=== PATIENT | male | born 1975 | race Caucasian/White ===

== ENCOUNTER → 2022-07-13 14:04 | Outpatient (REF) | payer OTHER, SELFPAY | LOC: HO.SL 14:04 | PROVIDERS: PCP Internal Medicine; Visit Provider Nurse Practitioner Family | DX: G47.33 Obstructive sleep apnea (adult) (pediatric) (principal); G47.19 Other hypersomnia; R06.83 Snoring | CPT/HCPCS: 95806 ==

== ENCOUNTER → 2022-09-23 09:28 | Outpatient (BNVA) | payer OTHER, SELFPAY | PROVIDERS: PCP Internal Medicine; Visit Provider Nurse Practitioner Family | DX: G47.19 Other hypersomnia (principal) ==

== ENCOUNTER → 2022-12-21 09:17 | Outpatient (BNVA) | payer OTHER, SELFPAY | PROVIDERS: PCP Internal Medicine; Visit Provider Nurse Practitioner Family | DX: Z13.89 Encounter for screening for other disorder (principal) ==

== ENCOUNTER 2024-10-02 12:00 | Outpatient (REF) | payer OTHER, SELFPAY ==
--- NOTE | ~2024-10-02 | XR_ITS ---
EXAMINATION: XR FOOT 3 OR MORE VIEWS RIGHT HISTORY: pain in right foot COMPARISON: There are no prior studies available for comparison. FINDINGS: Three views of the right foot are submitted. Osseous mineralization is normal. There is severe degenerative change involving the intertarsal joints, particularly those between the navicular and the cuneiforms as well as the calcaneocuboid joint, with joint space narrowing and subchondral cyst formation. There may be fragmentation of the navicular bone multiple osseous densities seen on the lateral view. There is a plantar calcaneal spur. The soft tissues are unremarkable. 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 Possible fragmentation of the navicular bone. Findings could represent early Charcot joint. Clinical correlation is recommended. Electronically signed by: Joao Louise MD 10/04/2024 09:48 AM [facility] RP
--- OUTSIDE RECORDS SUMMARY | 2024-10-02 14:16 | XMS_ITS | Data Portability ---
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 MUST MEET 2 OUT OF 3 ELEMENTS: PROBLEMS, DATA OR RISK ELEMENT 1: PROBLEMS ADDRESSED 1 OR MORE CHRONIC ILLNESS WITH EXACERBATION OR 2 OR MORE STABLE CHRONIC ILLNESSES OR 1 UNDIAGNOSED NEW PROBLEM OR 1 ACUTE ILLNESS W/SYMPTOMS OR 1 ACUTE COMPLICATED INJURY ELEMENT 2: DATA MUST MEET 1 OF 3 CATEGORIES CATEGORY 1: REVIEW OF PRIOR EXTERNAL NOTES, REVIEW OF RESULTS, ORDERING OF EACH TEST, ASSESSMENT REQUIRING INDEPENDENT HISTORIAN OR CATEGORY 2: INDEPENDENT INTERPRETATION OF TESTS BY ANOTHER PHYSICIAN OR SPECIALIST OR CATEGORY 3: DISCUSSION OF MGT OR TEST INTERPRETATION W/EXTERNAL PHYSICIAN OR SPECIALIST ELEMENT 3: RISK RISK OF COMPLICATIONS AND/OR MORBIDITY OR MORTALITY OF PATIENT MANAGEMENT PROVIDER MUST THOROUGHLY DOCUMENT EACH ELEMENT THAT IS COVERED Not available 07/18/2021 09:38:49 02/06/2022 02/06/2022 [id number] [place] [id number] (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 MODERATE MUST MEET 2 OUT OF 3 ELEMENTS: PROBLEMS, DATA OR RISK ELEMENT 1: PROBLEMS ADDRESSED 1 OR MORE CHRONIC ILLNESS WITH EXACERBATION OR 2 OR MORE STABLE CHRONIC ILLNESSES OR 1 UNDIAGNOSED NEW PROBLEM OR 1 ACUTE ILLNESS W/SYMPTOMS OR 1 ACUTE COMPLICATED INJURY ELEMENT 2: DATA MUST MEET 1 OF 3 CATEGORIES CATEGORY 1: REVIEW OF PRIOR EXTERNAL NOTES, REVIEW OF RESULTS, ORDERING OF EACH TEST, ASSESSMENT REQUIRING INDEPENDENT HISTORIAN OR CATEGORY 2: INDEPENDENT INTERPRETATION OF TESTS BY ANOTHER PHYSICIAN OR SPECIALIST OR CATEGORY 3: DISCUSSION OF MGT OR TEST INTERPRETATION W/EXTERNAL PHYSICIAN OR SPECIALIST ELEMENT 3: RISK RISK OF COMPLICATIONS AND/OR MORBIDITY OR MORTALITY OF PATIENT MANAGEMENT PROVIDER MUST THOROUGHLY DOCUMENT EACH ELEMENT THAT IS COVERED Not available 02/06/2022 16:36:18 05/08/2022 05/08/2022 [id number] [place] [id number] (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) [facility] MODERATE MUST MEET 2 OUT OF 3 ELEMENTS: PROBLEMS, DATA OR RISK ELEMENT 1: PROBLEMS ADDRESSED 1 OR MORE CHRONIC ILLNESS WITH EXACERBATION OR 2 OR MORE STABLE CHRONIC ILLNESSES OR 1 UNDIAGNOSED NEW PROBLEM OR 1 ACUTE ILLNESS W/SYMPTOMS OR 1 ACUTE COMPLICATED INJURY ELEMENT 2: DATA MUST MEET 1 OF 3 CATEGORIES CATEGORY 1: REVIEW OF PRIOR EXTERNAL NOTES, REVIEW OF RESULTS, ORDERING OF EACH TEST, ASSESSMENT REQUIRING INDEPENDENT HISTORIAN OR CATEGORY 2: INDEPENDENT INTERPRETATION OF TESTS BY ANOTHER PHYSICIAN OR SPECIALIST OR CATEGORY 3: DISCUSSION OF MGT OR TEST INTERPRETATION W/EXTERNAL PHYSICIAN OR SPECIALIST ELEMENT 3: RISK RISK OF COMPLICATIONS AND/OR MORBIDITY OR MORTALITY OF PATIENT MANAGEMENT PROVIDER MUST THOROUGHLY DOCUMENT EACH ELEMENT THAT IS COVERED Not available 05/08/2022 16:42:58 02/17/2023 02/17/2023 [id number] [place] [id number] (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) [facility] MODERATE MUST MEET 2 OUT OF 3 ELEMENTS: PROBLEMS, DATA OR RISK ELEMENT 1: PROBLEMS ADDRESSED 1 OR MORE CHRONIC ILLNESS WITH EXACERBATION OR 2 OR MORE STABLE CHRONIC ILLNESSES OR 1 UNDIAGNOSED NEW PROBLEM OR 1 ACUTE ILLNESS W/SYMPTOMS OR 1 ACUTE COMPLICATED INJURY ELEMENT 2: DATA MUST MEET 1 OF 3 CATEGORIES CATEGORY 1: REVIEW OF PRIOR EXTERNAL NOTES, REVIEW OF RESULTS, ORDERING OF EACH TEST, ASSESSMENT REQUIRING INDEPENDENT HISTORIAN OR CATEGORY 2: INDEPENDENT INTERPRETATION OF TESTS BY ANOTHER PHYSICIAN OR SPECIALIST OR CATEGORY 3: DISCUSSION OF MGT OR TEST INTERPRETATION W/EXTERNAL PHYSICIAN OR SPECIALIST ELEMENT 3: RISK RISK OF COMPLICATIONS AND/OR MORBIDITY OR MORTALITY OF PATIENT MANAGEMENT PROVIDER MUST THOROUGHLY DOCUMENT EACH ELEMENT THAT IS COVERED Not available 02/17/2023 14:49:11 09/29/2024 09/29/2024 [id number] [place] [id number] (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) [facility] MODERATE MUST MEET 2 OUT OF 3 ELEMENTS: PROBLEMS, DATA OR RISK ELEMENT 1: PROBLEMS ADDRESSED 1 OR MORE CHRONIC ILLNESS WITH EXACERBATION OR 2 OR MORE STABLE CHRONIC ILLNESSES OR 1 UNDIAGNOSED NEW PROBLEM OR 1 ACUTE ILLNESS W/SYMPTOMS OR 1 ACUTE COMPLICATED INJURY ELEMENT 2: DATA MUST MEET 1 OF 3 CATEGORIES CATEGORY 1: REVIEW OF PRIOR EXTERNAL NOTES, REVIEW OF RESULTS, ORDERING OF EACH TEST, ASSESSMENT REQUIRING INDEPENDENT HISTORIAN OR CATEGORY 2: INDEPENDENT INTERPRETATION OF TESTS BY ANOTHER PHYSICIAN OR SPECIALIST OR CATEGORY 3: DISCUSSION OF MGT OR TEST INTERPRETATION W/EXTERNAL PHYSICIAN OR SPECIALIST ELEMENT 3: RISK RISK OF COMPLICATIONS AND/OR MORBIDITY OR MORTALITY OF PATIENT MANAGEMENT PROVIDER MUST THOROUGHLY DOCUMENT EACH ELEMENT THAT IS COVERED Not available 09/29/2024 15:46:01 Plan of Treatment Reminders Order Date Submit Date Provider Last Modified By Organization Details Last Modified Time Details Appointments None recorded. Lab HbA1c (hemoglobin A1c), blood 2021 [facility], [address] [place] [address], [address], 14:03:50 lipid panel, blood 2021 [facility], [address] [place] [address], [address], 13:53:44 microalbumi n, urine 2021 [facility], [address] [place] [address], [address], 14:41:55 CMP, serum or plasma 2021 [facility], [address] [place] [address], [place], [address], 13:52:44 Referral sleep medicine referral - would like to set up a home sleep study 2021 022 [email or web address] [facility], [address] [place] [address], [place], [address], 2 08:19:32 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 Surgeries None recorded. Imaging XR, foot, 3 or more view 2024 025 [email or web address] [facility], [address] [facility], [place], [address], 15:53:37 Medication Orders Tresiba FlexTouch U-200 insulin 200 unit/mL (3 mL) subcutaneou s pen 2020 021 [facility][id number], [address] [place], [address], 09:38:09 sildenafil 100 mg tablet 2021 022 [facility][id number], [address] [place], [address], 16:49:54 Patient TargetsNo targets recorded. Patient Instructions Encounter Date Encounter Id Patient Instructions Last Modified By Organization Details Last Modified Time 07/18/2021 [id number] learning about type 1 diabetes Not available 07/18/2021 09:38:06 diabetic retinopathy: care instructions Not available 07/18/2021 09:38:06 type 2 diabetes: care instructions Not available 07/18/2021 09:38:06 high cholesterol : care instructions Not available 07/18/2021 09:38:05 05/08/2022 [id number] sleep apnea: car e instructions Not available 05/08/2022 16:47:11 Reason for Referral Sleep Medicine Referral for Sleep apnea would like to set up a home sleep study Referring Physician: Raleigh Sanches, Internal [facility], Encounter Date: 05/08/2022 Drier Tender Naphthalene Referral for Pain in right foot progressive right foot pain with noted deformities in this flat-footed type 1 diabetic gentleman Referring Physician: Raleigh Sanches, Internal Medicine, Encounter Date: 09/29/2024 Results Created Date Observation Date Name Description Value Unit Range Abnormal Flag Note LastModifiedBy Organization Detail LastModifiedTime Result Notes None recorded. Problems Name Problem SNOMED Code Status Onset Date Resolution Date Notes Provider Name and Address Organization Details Recorded Time Erectile dysfunct ion 260418898 Active 2019 Mag nevarez [place] [facility] 0 11:04:50 Obesity 854130791 Completed 201909/16/2020 Raleigh Sanches, DO [address] [place] [address], [address], [facility] 0 14:14:59 Hyperlip idemia 52884308 Active 2019 [facility] 0 11:05:10 Type 1 diabetes mellitus 76155945 Active 2019 Raleigh Sanches, DO [address] [place] [address], [address], [facility] 0 14:14:11 Nonproli ferative retinopa thy due to diabetes mellitus 677679623 Active 2019 Raleigh Sanches DO [address] [place] [address], [address], [facility] 0 14:14:41 Sleep apnea 98612046 Active 2021 Raleigh Sanches DO [address] [place] [address], [address], [facility] 2 16:43:44 Hypersom lizzeth with sleep apnea 96211852 Active 2021 Raleigh Sanches DO [address] [place] [address], [address], [facility] 2 16:46:54 Primary erectile dysfunct ion 180153735 Active 2021 Raleigh Sanches DO [address] [place] [address], [address], [facility] 2 16:48:28 Hypercho lesterol emia 94167838 Active 2022 Raleigh Sanches DO [address] [place] [address], [address], [facility] 3 14:51:21 Pain in right foot 95104348158 9107 Active 2024 Raleigh Sanches DO [address] [place], [address], [facility] 5 15:46:41 Problem Notes None recorded. Medical Equipment None Reported. Allergies Allergen ID Allergen Name Allergen Category Reaction Reaction Severity Criticality Documentation Date Start Date Code Code System Note Provider Name and Address Organization Details Recorded Time 4218 Medicinal product containin g penicilli n and acting as antibacte rial agent (product) medicatio n Not available Not available Not available 09/04/2020 90434 05 SNOMED Mag Treva [facility] 0 11:16:22 [id number] Ozempic medicatio n vomiting severe high 02/17/2023 07 RxNorm Raleigh Sanches, DO [address] [place], [address], [facility] 3 14:43:23 Medications Name Sig Start Date Stop Date Status Note LastModified by Organization Details LastModified Time atorvastati n 80 mg tablet TAKE 1 TABLET BY MOUTH EVERY DAY active Not Available Not Available No t Available potassium chloride ER 10 mEq tablet,exte nded release 10/23 completed Not Available Not Available Not Available sildenafil 100 mg tablet TAKE 1 TABLET BY MOUTH EVERY DAY FOR 30 DAYS active Not Available Not Available No t Available Novolog FlexPen U-100 Insulin aspart 100 unit/mL (3 mL) subcutaneou s INJECT 35 TO 45 UNITS SUBCUTANE OUSLY UP TO 4X/DAY. TARGET: 130MG/DL, MAX UP TO 140 UNITS DAILY active Not Available Not Available No t Available rosuvastati n 20 mg tablet TAKE 1 TABLET BY MOUTH EVERY DAY active Not Available Not Available No t Available tadalafil 20 mg tablet TAKE 1 TABLET BY MOUTH ONCE DAILY NEEDED FOR ERECTIONS active Not Available Not Available No t Available OneTouch UltraSoft Lancets 02/06 completed Not Available Not Available Not Available Humalog KwikPen (U-100) Insulin 100 unit/mL subcutaneou s USE 3 4 TIMES DAILY 60 80 UNITS IN DIVIDED DOSES, PER SLIDING SCALE (PT AWARE) 07/18 completed Not Available Not Available Not Available OneTouch Verio test strips TEST SUGAR FIVE TIMES A DAY active Not Available Not Available No t Available Levemir FlexTouch U-100 Insulin 100 unit/mL (3 mL) subcutaneou s pen Inject 80 units every day by sub-q route for 30 days. 03/12 completed Not Available Not Available Not Available Humalog KwikPen U-200 Insulin 200 unit/mL (3 mL) subcutaneou s INJECT 35 TO 45 UNITS SUBCUTANE OUSLY UP TO 4 TIMES A DAY, TARGET 130MG/DL, MAX UP TO 140UNITS DAILY active Not Available Not Available No t Available Tresiba FlexTouch U-200 insulin 200 unit/mL (3 mL) subcutaneou s pen PLEASE SEE ATTACHED FOR DETAILED DIRECTION S active Not Available Not Available No t Available Ozempic 0.25 mg or 0.5 mg (2 mg/1.5 mL) subcutaneou s pen injector 03/12 completed Not Available Not Available Not Available Dexcom G6 Sensor device 07/18 completed Not Available Not Available Not Available 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 G6 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 07/18 completed Not Available Not Available Not Available Dexcom G6 Transmitter device 07/18 completed Not Available Not Available Not Available BD Carly 2nd Gen Pen Needle 32 gauge x 5/32 USE TO INJECT INSULIN 4 X DAILY active Not Available Not Available No t Available OneTouch Ultra2 Meter test up to twice a day active Not Available Not Available No t Available OneTouch Delica Plus Lancet 30 gauge CHECK SUGAR 5 TIMES A DAY active Not Available Not Available No t Available Baqsimi 3 mg/actuatio n nasal spray PLEASE SEE ATTACHED FOR DETAILED DIRECTION S active Not Available Not Available No t Available Vitals Date Recorded Body height Body mass index (BMI) Body weight Heart rate Oxygen saturation Oxygen saturation in Arterial blood by Pulse oximetry Systolic blood pressure Diastolic blood pressure Provider Name and Address Organization Details Last Updated DateTime 185.42 cm 34 kg/m2 021434. 83 g 95 /min 98 % 98 % 134 mm[Hg] 76 mm[Hg] Raleigh Sanches, DO [address] [place], [address] [place] [address] Internal Medicine 1 09:22:53 Date Recorded Body height Body mass index (BMI) Body weight Systolic blood pressure Diastolic blood pressure Provider Name and Address Organization Details Last Updated DateTime 02/06/2022 185.42 cm 34.8 kg/m2 034816. 31 g 122 mm[Hg] 72 mm[Hg] Raleigh Sanches DO [address] [place], [address], [facility] 2 16:04:13 Date Recorded Heart rate Oxygen saturation Oxygen saturation in Arterial blood by Pulse oximetry Provider Name and Address Organization Details Last Updated DateTime 02/06/2022 94 /min 98 % 98 % Angelita Paredes [facility] 02/06/2022 16:05:07 Date Recorded Body height Body mass index (BMI) Body weight Heart rate Oxygen saturation Oxygen saturation in Arterial blood by Pulse oximetry Systolic blood pressure Diastolic blood pressure Provider Name and Address Organization Details Last Updated DateTime 2 185.42 cm 34.9 kg/m2 279021. 9 g 93 /min 98 % 98 % 114 mm[Hg] 72 mm[Hg] Raleigh Sanches DO [address] [place], [address], [facility] 2 16:18:05 Date Recorded Body height Body mass index (BMI) Body weight Heart rate Oxygen saturation Oxygen saturation in Arterial blood by Pulse oximetry Systolic blood pressure Diastolic blood pressure Provider Name and Address Organization Details Last Updated DateTime 3 185.42 cm 34.9 kg/m2 914978. 1 g 94 /min 96 % 96 % 132 mm[Hg] 80 mm[Hg] Raleigh Sanches DO [address] [place] [address], [address], [facility] 3 14:19:34 Date Recorded Body height Body mass index (BMI) Body weight Heart rate Oxygen saturation Oxygen saturation in Arterial blood by Pulse oximetry Systolic blood pressure Diastolic blood pressure Provider Name and Address Organization Details Last Updated DateTime 5 185.42 cm 34.8 kg/m2 642129. 39 g 94 /min 97 % 97 % 128 mm[Hg] 80 mm[Hg] Marie Herzog [facility] 5 15:26:04 Social History Question Answer Notes LastModified by Organizat ion Details LastModified Time Tobacco Smoking Status Never Smoker Mag Tilley [facility] 09/04/2020 11:05:41 What Was The Date Of Your Most Recent Tobacco Screening? 09/29/2024 [email or web address] Information not available 09/29/2024 Do You Or Have You Ever Used Any Other Forms Of Tobacco Or Nicotine? No Information not available 02/06/2022 Sex: Unknown Functional Status None recorded. Mental Status None recorded. Family History Nothing Reported. Medical History No medical history recorded. Immunizations Vaccine Type Date Status Note Provider Nam e and Address Organization Details Recorded Time Influenza, split virus, quadrivalent, preservative 1 completed Angelita Paredes [facility] 02/06/2022 12:12:35 COVID-19, mRNA, LNP-S, PF, 100 mcg/0.5mL dose or 50 mcg/0.25mL dose 1 completed Angelita Paredes [facility] 02/06/2022 12:13:23 Tdap 8 completed Mag Tilley [facility] 09/04/2020 11:11:04 Influenza, split virus, quadrivalent, preservative 0 completed Angelita Paredes [facility] 10/23/2020 14:19:55 pneumococcal polysaccharide PPV23 8 completed Mag Tilley [facility] 03/10/2021 11:04:02 COVID-19, mRNA, LNP-S, PF, 100 mcg/0.5mL dose or 50 mcg/0.25mL dose 1 completed Mag Tilley [facility] 03/10/2021 11:04:16 COVID-19, mRNA, LNP-S, PF, 100 mcg/0.5mL dose or 50 mcg/0.25mL dose 1 completed Mag Tilley [facility] 03/10/2021 11:04:24 Past Encounters Encounter ID Performer Location Encounter Start Date Encounter Closed Date Diagnosis/Indication Diagnosis SNOMED-CT Code Diagnosis ICD10 Code Diagnosis Note [id number] DO Adalid [facility] [address] [facility],[place] [address] 09/16/2020 11:28:27 09/16/2020 14:41:37 Type 1 diabetes mellitus 48380026 E11.65 Hyperlipidemia 40541241 E78.5 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 669965748 E11.3299 gets reg eye exam will also get microalbum Primary er ectile dysfunction 072527721 N52.9 will rechk the testost Vitamin D deficiency 347 80720 E55.9 will need to chk levels [id number] Raleigh Sanches [facility] [address] [place] [address],[place] [address] 10/23/2020 14:12:44 10/23/2020 14:51:28 Type 1 diabetes mellitus 63209154 E11.65 will refer to endo for conseidera tion of pump and freestyle renate reader etc Hyperlipidemia 20134971 E78.5 will be checking at the next lab draw 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 224113336 E11.3299 gets reg eye exam will also get microalbum [id number] Raleigh Sanches [facility] [address] [place] [address],[place] [address] 03/12/2021 09:12:40 03/12/2021 09:43:22 Type 1 diabetes mellitus 80599748 E11.65 doing great will be put on dexcom this week comingnow on Tresiba Hyperlipidemia 74058505 E78.5 will be checking at the next lab draw 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 423740145 E11.3299 gets reg eye exam for retinal injections will also get microalbum [id number] Raleigh Sanches [facility] [address] [place] [address],[place] [address] 07/18/2021 09:17:09 07/18/2021 09:49:16 Type 1 diabetes mellitus 81946950 E11.65 doing great will be put on dexcom this week comingnow on Tresiba and humalog vision has been stable Hyperlipidemia 16309232 E78.5 LDL is 77 and doing excellent Vitamin D deficiency 347 03940 E55.9 level was 15 with supplement she will call us with amount he is taking and we will increase 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 026674793 E11.3299 gets reg eye exam for retinal injections getting injections q 3 months [id number] Raleigh Sanches [facility] Internal [facility] [address] [facility],[place] 7 02/06/2022 15:40:53 02/06/2022 16:47:55 Type 1 diabetes mellitus 74877806 E11.65 doing great will be put on dexcom but came off as he did not get used to itnow on Tresiba and humalog vision has been stable Hyperlipidemia 24653171 E78.5 LDL is 77 and doing excellent 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 937875738 E11.3299 gets reg eye exam for retinal injections getting injections q 3 months [id number] Raleigh Sanches [facility] [address] [facility],[place] 7 05/08/2022 16:11:06 05/08/2022 16:51:30 Type 1 diabetes mellitus 88017866 E11.65 doing great will be put on dexcom but came off as he did not get used to itnow on Tresiba and humalog a1c is 7.9 relates having his eyes checked and has had the retinopath y checked aggressive ly Hyperlipidemia 85462531 E78.5 LDL is 108 and will need to be improved Sleep apnea 78764145 G47 .30 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 describes severe snores Primary er ectile dysfunction 076276194 N52.9 will rechk the testost [id number] Raleigh Sanches [facility] [address] [facility],[place] 7 02/17/2023 14:03:59 02/17/2023 14:55:48 Type 1 diabetes mellitus 88565156 E11.65 doing great will be put on dexcom but came off as he did not get used to itnow on Tresiba and humalog a1c is 8.8 was 7.9 was 8.1 relates having his eyes checked and has had the retinopath y checked aggressive ly offered nutritioni st we will decide in 3 months Hypercholesterolemia 136 09036 E78.00 on 80mg atorvastat [id number] Raleigh Sanches, [facility] Internal Medicine [address] [facility],[place]ulce Maria jarasusie Lash[place] [address] 09/29/2024 15:16:00 09/29/2024 15:53:37 Type 1 diabetes mellitus 45394796 E11.65 doing great will be put on dexcom but came off as he did not get used to itnow on Tresiba and humalog a1c is 8.8 was 7.9 was 8.1 relates having his eyes checked and has had the retinopath y checked aggressive ly offered nutritioni st we will decide in 3 months Hyperlipidemia 51234284 E78.5 LDL is 108 and will need to be improved Hypercholesterolemia 136 93495 E78.00 on 80mg atorvastat Pain in right foot 34547 52458 73336 M79.671 Health Concerns Section Related Observation LastModified by Organization Detai ls LastModified Time None Recorded Concern Status LastModified by Organization Details LastModified Time None Recorded Advance Directives Directive None Recorded Payers Encounter Date Sequence Insurance Name Policy Number Policy Laura Covered Member ID Laura Member ID Guarantor Name 07/18/2021 1 [employer] ([employer]) [id number] Erik Schneider Skrocki [id number] Erik Skrocki 02/06/2022 1 [employer] [place]) [id number] Erik Schneider Skrocki [id number] Erik Skrocki 05/08/2022 1 [employer] ([employer]) [id number] Erik W Skrocki [id number] Erik Skrocki 02/17/2023 1 [employer]) [id number] Erik W Skrocki [id number] Erik Skrocki 09/29/2024 1 [employer] ([employer]) [id number] 7 Erik W Skrocki [id number] Erik Aranda Notes Date Note Type Note Provider Name a nd Address Organization Details Recorded Time 2 text/html here for rechkstates gluc are up and down sometimes as low as 47 today at lunch is 300relates he is very busy at workstates hurt his back and has not been exercisingvision seems to be okbut work is very busylast appt was cxl due to covid and has had loss of energy since covid Raleigh Sanches DO [address] [place], [address], [facility] 02/06/2022 16:43:06 2 text/html here for leo and states he is still recovering from long covid with ongoing fatiguerelates he is not exercising steadily but when he does his sugars drophis job is very sedentary Raleigh Sanches DO [address] [place], [address], [facility] 05/08/2022 16:50:44 3 text/html here for leo and is doing ok overallhe is back to working out but is struggling with his weightstruggling to do a good way of eatingdoesnt eat as much as in past but he is still not losing Raleigh Sanches DO [address] [place], [address], [facility] 02/17/2023 14:53:39 5 text/html Care Management - DiabetesReported bypatient.Self Care:seeing eye doctor yearly for dilated eye exam; checking feet regularly; normal range of home blood sugars (in the low 100s); no side effects from medications Associated Symptoms:symptoms are usually well controlled; no fatigue; no dizziness; no excessive sweating; no headaches; no confusion; no increased thirst; no increased appetite; no increased urination; no blurred vision; no numbness of feet; no calluses on feetNotes:no neuropathy on feet tensilon test good 2 months ago here for leo having pain in his right foot feeling stiff and painful across dorsum of footarea very swollen worse discomfort when sitting and then puts weight on it8.0 a1c from his endocrine Raleigh Sanches DO [address] [place], [address], [facility] 09/29/2024 15:51:09
== END 2024-10-02 12:01 | disposition home or self-care (01) ==
LOC: HO.XRAY 12:00
PROVIDERS: PCP Internal Medicine; Visit Provider Internal Medicine
DX: M79.671 Pain in right foot (principal)
CPT/HCPCS: 73630

== ENCOUNTER → 2024-10-02 12:09 | Outpatient (BNV) | payer OTHER, SELFPAY | PROVIDERS: PCP Internal Medicine; Visit Provider Radiology Diagnostic Radiology | DX: M79.671 Pain in right foot (principal) | CPT/HCPCS: 73630 ==